=== PATIENT | female | born 1940 | race Caucasian/White ===

== ENCOUNTER 2020-11-08 14:30 | Outpatient (RCR) | payer OTHER, SELFPAY ==
--- NOTE | 2020-10-25 18:00 | ST.OPIE ---
Visit Care Team Role Provider Type Rocío Orta DO Primary Care Provider Non-Staff Specialty: Medical Address: [address] [place] [address], [address] Email: Ricardo Cage MD Attending Provider Physician Referring Provider Specialty: Ear, Nose, Throat Address: [address] [place] [address], [address] Email: [email or web address] Speech-Language Pathology Initial Evaluation PRINTER APPRENTICE Voice Resonance Evaluation Start: 10/25/20 09:39 Freq: Status: Active Protocol: Document 10/25/20 09:39 CORNELIUS (Rec: 10/25/20 09:56 CORNELIUS [id number]) Voice and Resonance Assessment Session Time Visit Start Time 09:30 Visit Stop Time 10:35 Total Visit Minutes 65 Visit Information Visit Number Initial Evaluation Plan of Care Dates 10/25/20 - 01/24/21 Insurance Information [employer] Advantage Next Note Type Next Note Type Treatment Note Referral Referring Physician Dr. Ricardo Cage Reason for Referral Dysphonia Setting Setting Outpatient Care Patient History General Information The pt is a 71-yr-old female who c/o increased hoarseness over the last 2 yrs, tristen this last year with episodes of aphonia. Pt lives alone with cat and has not been talking much over the last year. Pt has enjoyed singing but is unable to now. The pt underwent laryngoscopy with Dr. Cage with findings of normal exam without obvious Pt denies dysphagia, PND, GERD. 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 Hearing Hearing Level Normal Vision Comments Wears prescription glasses [place] Lang[place] Language(s) Spoken in the Home Yoruba Educational Status Education Level Master's degree Occupational Status Occupation Status Retired therapist Previous Therapy Previous Speech-Language Therapy No Subjective Subjective The pt arrived on time and provided case history supplemental to medical records. - Laryngeal Performance S/Z Ratio S/Z Ratio 1.0490 Functional for Speech Yes Reduced Laryngeal Function Relative to No Respiration Voice Handicap Index Function Subtotal 20 Physical Subtotal 17 Emotional Subtotal 17 Total Score 54 Severity Moderate (31-60) CAPE-V Overall Severity 76% Roughness 71% Breathiness 24% Strain 56% Pitch 60% Loudness WNL Normal Resonance? Yes Additional Features Diplophonia,Pitch Instability Other Features Observed Pitch breaks; Improved quality w/ increased loudness Maximum Phonation Time MPT Norms: Women (15-25) Men (25-35) Loudness (50-60 dB); Speaking Rate: Oral Reading of Sentences (190 Words Per Minute); Oral Reading of Paragraphs (160-170 WPM); Speaking Rate in Conversation (150-250 WPM) Maximum Phonation Time 12.9s with strained voice at ~ 9s Maximum Phonation Time Reduced,Unstable Pitch Jitter/Shimmer Norms: Jitter (Less than or equal to 1.040% - Frequency) Norms: Shimmer (Less than or equal to 3.810% - Amplitude) Jitter 0.26% WNL Shimmer 1.42% WNL Pitch [place] Pitch [place] Pitch Breaks,Reduced Range, Tension Pitch [place] Comments 128-352 Hz; Pitch jumped to 466 Hz without control Breath Support Breath Support At Rest Mixed Breath Support Sustained Phonation Mixed Breath Support Conversation Mixed Speaks on Room Air Yes Voice Pitch Range Norms: Women (100-300 Hz) Men (70-250 Hz) Fundamental Frequency Norms: Women (Mean: 225 Hz; Range: 155-334 Hz) Men ( Mean: 128 Hz; Range: 85-196 Hz) Fundamental Frequency 180.7 WNL Intensity 72 dB Paradoxical Vocal Fold Movement No Indications Resonance Nasal Resonance Normal Therapeutic Techniques Therapy Tactics Breath Support,Increase Loudness Other Tactics Improved quality with increased loudness Findings Findings Moderate-Severe Impairment Voice/Resonance Assessment Assessment The pt presents with moderate- severe dysphonia, likely secondary to aging and reduced use over COVID-19 pandemic isolation. Vocal quality is strained and rough with moderate-severe diplophonia. Mild breathiness is also present intermittently, and pitch range is limited with breaks and instability. Quality improved with increased loudness. Prognosis Rehabilitation Potential Good - Recommendations Treatment Recommended Yes Treatment Frequency/Duration 1x/wk for 12 wks Therapy Recommendations Training in breath support for voice, laryngeal relaxation techniques, and VF adduction exercises. Short Term Goals 1. The pt will perform diaphragmatic breathing in structured tasks with 80% accuracy to improve breath support for speech and voice. 2. The pt will perform laryngeal relaxation techniques with min cues and 80% acc to improve vocal quality and ease. 3. The pt will perform forward focus phonation (FFP) with 80 % accuracy in structured tasks to reduce laryngeal tension and improve vocal production. 4. The pt will sustain phonation with good vocal quality for 15 sec across three trials to improve breath support for voice and speech and improve vocal function. 5. The pt will perform pitch glide exercises with good quality voice in 80% of opportunities to improve voice for conversation and singing. Mcc Goals 1. The pt will perform diaphragmatic breathing independently in vocal exercises and spontaneous speech tasks to improve breath support for speech and voice. 2. The pt will perform laryngeal relaxation techniques independently to extend duration of speech with optimal vocal quality. 3. The pt will exhibit no greater than mild dysphonia symptoms as measured by VHI and CAPE-V perceptual rating forms. 4. The pt will produce vocal quality WNL in spontaneous conversation to improve ability to express herself in functional conversations and speech tasks. 5. The pt will produce vocal quality WFL in song to resume hobby and improve quality of life. Referrals Voice/Resonance Other Referral Videostroboscopy not warranted at this time. Will pursue if limited results Patient/Caregiver Education Patient/Family Education Described results of evaluation,Patient Understanding,Patient Needs More Info Vocally Abusive Behavior Behavior Rating Alcohol Consumption Infrequently [place] Talking Never Arguing (peers/siblings/other) Occasionally Athletic Activity Yelling Occasionally Mouth Breathing Possibly at night Caffeine Use 1/day Calling from Distance Never Cheerleading Participation Never Coughing/Sneezing Loudly Never Crying Infrequently Use of Dairy Products Occasionally Environmental Irritant Exposure Never Use of Inhalants Never Laughing Hard/Abusively Occasionally Singing Abusively Never Participation In Plays Never Smoking Never Excessive Talking Never Making Animal /Toy Noises Never Yelling/Screaming Never
--- NOTE | 2020-11-01 16:55 | ST.OPTN ---
Visit Care Team Role Provider Type Rocío Orta DO Primary Care Provider Non-Staff Address: [address] [place] [address], [place], [address] Ricardo Cage MD Attending Provider Physician Referring Provider Address: [address] [place] [address], [address] LICENSED PRACTICAL NURSE Treatment Note LICENSED PRACTICAL NURSE Treatment Note Start: 10/25/20 09:39 Freq: Status: Active Protocol: Document 11/01/20 16:43 CORNELIUS (Rec: 11/01/20 16:44 CORNELIUS [id number]) Speech Pathology Treatment Note Session Time Visit Start Time 14:30 Visit Stop Time 15:20 Total Visit Minutes 50 Visit Information Visit Number 07/31 Plan of Care Dates 10/25/20 - 01/24/21 Insurance Information [employer] Advantage Setting Treatment Setting Outpatient Care Visit Type Note Type Treatment Note Next Note Type Next Note Type Treatment Note General Information General Information The pt is a 71-yr-old female who c/o increased hoarseness over the last 2 yrs, tristen this last year with episodes of aphonia. Pt lives alone with cat and has not been talking much over the last year. Pt has enjoyed singing but is unable to now. The pt underwent laryngoscopy with Dr Aminata Cage with findings of normal exam without obvious Pt denies dysphagia, PND, GERD . 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 Subjective Observations/Patient Presentation The pt arrived on time and reported improvement in voice, which was also perceived by LICENSED PRACTICAL NURSE. She had practiced diaphragmatic breathing and reading aloud since last visit and has increased opportunities to speak by walking with a neighbor. Chief Complaint(s) Voice Rehab Expectation/Goals: Patient Goals Improve voice to PLOF; be able to sing again. Patient Knowledge/Awareness of LICENSED PRACTICAL NURSE Role Excellent in Treatment Patient/Caregiver Compliance with Home Excellent Exercise Program Objective Short Term Goals 1. The pt will perform diaphragmatic breathing in structured tasks with 80% accuracy to improve breath support for speech and voice. 2. The pt will perform laryngeal relaxation techniques with min cues and 80% acc to improve vocal quality and ease. 3. The pt will perform forward focus phonation (FFP) with 80 % accuracy in structured tasks to reduce laryngeal tension and improve vocal production. 4. The pt will sustain phonation with good vocal quality for 15 sec across three trials to improve breath support for voice and speech and improve vocal function. 5. The pt will perform pitch glide exercises with good quality voice in 80% of opportunities to improve voice for conversation and singing. Class B Driver Goals 1. The pt will perform diaphragmatic breathing independently in vocal exercises and spontaneous speech tasks to improve breath support for speech and voice. 2. The pt will perform laryngeal relaxation techniques independently to extend duration of speech with optimal vocal quality. 3. The pt will exhibit no greater than mild dysphonia symptoms as measured by VHI and CAPE-V perceptual rating forms. 4. The pt will produce vocal quality WNL in spontaneous conversation to improve ability to express herself in functional conversations and speech tasks. 5. The pt will produce vocal quality WFL in song to resume hobby and improve quality of life. Treatment Activities Education provided RE subsystems of voice. Initiated training in diaphgragmatic breathing and breath support for voice/speech; yawn/sigh technique and forward focus resonance (FFR) to reduce laryngeal tension; VF adduction exercises to reduce vocal roughness. The pt verbalized understanding and returned demonstration of all exercises and techniques, including sustained phonation (MPT = 9.7 sec with clear vocal quality), staccato phonation, and FFR using /m/ in isolation and CV syllables. Assessment Patient Response to Treatment Excellent Rehab Potential Excellent Impairments Identified Vocal Quality,Vocal Hygiene Progress Towards Goals Excellent Progress Assessment of Overall Progress Improving Assessment of Improvement The pt has already demonstrated improvement in vocal quality with near elimination of diplophonia. She was receptive of and responsive to all education and training provided, demonstrating excellent understanding and ability to perform target techniques. Staccato phonation was mildly rough sounding, an area for measurable improvement. The pt initially exhibited mixed diaphragmatic and thoracic breathing but quickly adjusted to diaphragmatic with demonstration and training. She already performs VF adduction exercises (i.e., holding breath hard) as part of routine deep breathing practice, so this came easily to her. She asked many good questions throughout the session. Reviewed with Patient Goals,Progress Being Made,Home Exercise Program Patient/Caregiver Understanding Excellent Plan Amount of Therapy Recommended 1-2 Months Frequency of Treatment Once a Week Length of Session 45 Minutes Treatment Emphasis Next Session Continue training today's targets Therapeutic Contents Client Education,Home Exercise Program,Voice Training Provided Patient/Caregiver Instruction Home Exercise Program,Plan of Care,Questions/Concerns Therapy Recommendations Continue with Current Program
--- NOTE | 2020-11-08 16:26 | ST.OPTN ---
Visit Care Team Role Provider Type Rocío Orta DO Primary Care Provider Non-Staff Address: [address] [place] [address], [place], [address] Ricardo Cage MD Attending Provider Physician Referring Provider Address: [address] [place] [address], [address] REMOTE SENSING RESEARCH SCIENTIST Treatment Note REMOTE SENSING RESEARCH SCIENTIST Treatment Note Start: 10/25/20 09:39 Freq: Status: Active Protocol: Document 11/08/20 16:18 CORNELIUS (Rec: 11/08/20 16:26 CORNELIUS [id number]) Speech Pathology Treatment Note Session Time Visit Start Time 14:30 Visit Stop Time 15:05 Total Visit Minutes 35 Visit Information Visit Number 08/31 Plan of Care Dates 10/25/20 - 01/24/21 Insurance Information [employer] Advantage Setting Treatment Setting Outpatient Care Visit Type Note Type Treatment Note Next Note Type Next Note Type Treatment Note General Information General Information The pt is a 71-yr-old female who c/o increased hoarseness over the last 2 yrs, tristen this last year with episodes of aphonia. Pt lives alone with cat and has not been talking much over the last year. Pt has enjoyed singing but is unable to now. The pt underwent laryngoscopy with Dr Aminata Cage with findings of normal exam without obvious Pt denies dysphagia, PND, GERD . 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 Subjective Observations/Patient Presentation The pt arrived on time and reported improvement in voice, which was also perceived by REMOTE SENSING RESEARCH SCIENTIST. She had a one-hour phone conversation with her daughter , who commented that the pt's voice sounded like herself again. The pt did report some congestion in her voice this afternoon, after having spent most of the past 3 days working outside around chemicals, dust, and pollen. Otherwise, she feels her voice is nearing baseline. Chief Complaint(s) Voice Rehab Expectation/Goals: Patient Goals Improve voice to PLOF; be able to sing again. Patient Knowledge/Awareness of REMOTE SENSING RESEARCH SCIENTIST Role Excellent in Treatment Patient/Caregiver Compliance with Home Excellent Exercise Program Objective Short Term Goals 1. The pt will perform diaphragmatic breathing in structured tasks with 80% accuracy to improve breath support for speech and voice. 2. The pt will perform laryngeal relaxation techniques with min cues and 80% acc to improve vocal quality and ease. 3. The pt will perform forward focus phonation (FFP) with 80 % accuracy in structured tasks to reduce laryngeal tension and improve vocal production. 4. The pt will sustain phonation with good vocal quality for 15 sec across three trials to improve breath support for voice and speech and improve vocal function. 5. The pt will perform pitch glide exercises with good quality voice in 80% of opportunities to improve voice for conversation and singing. Quality Lab Technician Goals 1. The pt will perform diaphragmatic breathing independently in vocal exercises and spontaneous speech tasks to improve breath support for speech and voice. 2. The pt will perform laryngeal relaxation techniques independently to extend duration of speech with optimal vocal quality. 3. The pt will exhibit no greater than mild dysphonia symptoms as measured by VHI and CAPE-V perceptual rating forms. 4. The pt will produce vocal quality WNL in spontaneous conversation to improve ability to express herself in functional conversations and speech tasks. 5. The pt will produce vocal quality WFL in song to resume hobby and improve quality of life. Treatment Activities The pt completed voice exercises with min prompts. Improved VF closure perceived with staccato phonation at varying pitches. The pt read texts of various lengths and participated in conversation with occasional mildly increased vocal noise, perceived as mucus interference, likely from recent exposure to environmental irritants. Trained pt in alternative cough techniques, which she performed, demonstrating understanding and ability to use. All questions were answered. Discussed POC and agreed pt will continue HEP and f/u in 3 wks. Assessment Patient Response to Treatment Excellent Rehab Potential Excellent Impairments Identified Vocal Quality,Vocal Hygiene Progress Towards Goals Excellent Progress Assessment of Overall Progress Improving Assessment of Improvement The pt is making excellent progress toward goals, nearing baseline vocal quality. Mildly increased vocal noise intereference and throat clearing/cough present secondary to exposure to environmental irritants, expected to clear with reduced exposure. The pt was able to perform alternative cough techniques, the use of which should expedite recovery. Will f/u in 3 wks. Anticipate d/c from services soon thereafter. Reviewed with Patient Goals,Progress Being Made,Home Exercise Program Patient/Caregiver Understanding Excellent Plan Amount of Therapy Recommended 1-2 Months Frequency of Treatment Once a Week Length of Session 45 Minutes Treatment Emphasis Next Session Ongoing assessment and training Therapeutic Contents Client Education,Home Exercise Program,Voice Training Provided Patient/Caregiver Instruction Home Exercise Program,Plan of Care,Questions/Concerns Therapy Recommendations Continue with Current Program
--- NOTE | 2021-01-09 15:44 | ST.OPDS ---
Visit Care Team Role Provider Type Rocío Orta DO Primary Care Provider Non-Staff Address: [address] [place] [address], [place], [address] Ricardo Cage MD Attending Provider Physician Referring Provider Address: [address] [place] [address] [place], [address] PHARMACY SALESPERSON Treatment Note PHARMACY SALESPERSON Treatment Note Start: 10/25/20 09:39 Freq: Status: Active Protocol: Document 01/09/21 15:42 CORNELIUS (Rec: 01/09/21 15:44 CORNELIUS [id number]) Speech Pathology Treatment Note Visit Information Plan of Care Dates 10/25/20 - 01/24/21 Insurance Information [employer] Ad[employer]age Visit Type Note Type Discharge Summary General Information General Information The pt is a 71-yr-old female who c/o increased hoarseness over the last 2 yrs, tristen this last year with episodes of aphonia. Pt lives alone with cat and has not been talking much over the last year. Pt has enjoyed singing but is unable to now. The pt underwent laryngoscopy with Dr Aminata Cage with findings of normal exam without obvious Pt denies dysphagia, PND, GERD . 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 Subjective Observations/Patient Presentation Pt spoke with clinic schedulers and requested discharge from Speech Therapy. She stated she's got her voice back completely, she's very happy with her progress and will continue to follow [ PHARMACY SALESPERSON's] instructions. Chief Complaint(s) Voice Assessment Assessment of Overall Progress Rehabilitated Assessment of Improvement Pt is happy with results of therapy. Plan Therapy Recommendations Discharge from Speech Therapy
== END 2021-01-10 08:13 | disposition home or self-care (01) ==
LOC: SP 14:30
PROVIDERS: PCP Family Medicine; Referring Provider Otolaryngology; Visit Provider Otolaryngology
DX: R49.0 Dysphonia (principal)
CPT/HCPCS: 92507; 92520; 92524